=== PATIENT | female | born 1955 | race Two or more races ===

== ENCOUNTER 2018-08-24 09:52 | Day surgery (SDC) | payer OTHER ==
[~2018-08-24 09:52] MED LIST: PROLINE; SYNTHROID125 MCG
== END 2018-08-24 16:15 | disposition home or self-care (01) ==
LOC: AMB-ENDOS 09:52 → ADM 13:45 → AMB-ENDOS 16:15
DX: K29.50 Unspecified chronic gastritis without bleeding (principal)

== ENCOUNTER 2018-10-02 14:15 | Inpatient (IN) | payer OTHER ==
[~2018-10-02] VITALS: Ht 152.4 cm; Wt 54.4 kg
[~2018-10-02 14:15] MED LIST changes: -SYNTHROID125 MCG; +SYNTHROID125 MCG PO
[2018-10-05] MEDS ORDERED: CARAFATE1 GM PO (12:35)
[2018-10-05] MEDS ORDERED: GAS RELIEF125 MG PO (12:35)
[2018-10-05] MEDS ORDERED: OXYC1TAB9 PO (12:36)
[2018-10-05] MEDS ORDERED: POLY119PG PO (12:36)
== END 2018-10-05 17:17 | disposition home or self-care (01) | DRG 328 ==
LOC: O/R 10-04 05:50 → SURH 10-04 05:50
PROVIDERS: ADMIT Surgery
PROC: 0DS64ZZ Reposition Stomach, Percutaneous Endoscopic Approach (ICD-10-PCS; 2018-10-04)
PROC: 0DV44ZZ Restriction of Esophagogastric Junction, Percutaneous Endoscopic Approach (ICD-10-PCS; 2018-10-04)
PROC: 0WQF4ZZ Repair Abdominal Wall, Percutaneous Endoscopic Approach (ICD-10-PCS; 2018-10-04)
PROC: 0DJ08ZZ Inspection of Upper Intestinal Tract, Via Natural or Artificial Opening Endoscopic (ICD-10-PCS; 2018-10-04)
PROC: 0BUT4JZ Supplement Diaphragm with Synthetic Substitute, Percutaneous Endoscopic Approach (ICD-10-PCS; principal; 2018-10-04 08:00)
DX: K44.9 Diaphragmatic hernia without obstruction or gangrene (principal); K42.9 Umbilical hernia without obstruction or gangrene; K43.2 Incisional hernia without obstruction or gangrene; K21.9 Gastro-esophageal reflux disease without esophagitis; M25.511 Pain in right shoulder; Z88.0 Allergy status to penicillin